=== PATIENT | male | born 2000 | race Hispanic/Latino ===

== ENCOUNTER 2022-12-15 23:32 | Emergency (ER) | payer MEDICAID ==
[~2022-12-15] VITALS: Ht 177.8 cm; Wt 99.8 kg
[2022-12-15 23:34] VITALS: BP 138/72
== END 2022-12-15 23:52 | disposition left against medical advice (07) ==
LOC: EDH 23:32
DX: R07.81 Pleurodynia (principal); Z53.21 Procedure and treatment not carried out due to patient leaving prior to being seen by health care provider
CPT/HCPCS: 99281